=== PATIENT | male | born 1965 | race Caucasian/White ===

== ENCOUNTER 2018-05-08 17:27 | Emergency (ER) | payer SELFPAY ==
[2018-05-08 18:01] LABS: #Basophils 0.1 thou/uL (0.0-0.2); #Eosinphils 0.4 thou/uL (0.0-0.7); #Lymphocytes 3.4 thou/uL (1.20-3.40); #Monocytes 0.9 thou/uL (0.11-0.59); #Neutrophils 4.3 thou/uL (1.40-6.50); %Basophils 1.5 % (0.0-1.0); %Eosinophils 3.9 % (0.0-10.0); %Lymphocytes 36.9 % (21.0-51.0); %Neutrophils 47.6 % (42.0-75.0); Hemoglobin 12.8 g/dL (14.0-18.0); Mean Corpuscular Hemoglobin 29.6 pg (27.0-31.0); Mean Corpuscular Volume 92.4 fL (78.0-98.0); Mean Platelet Volume 7.7 fL (7.4-10.4); Platelet Count 381 thou/uL (130-400); RBC Distribution Width 12.2 % (11.5-14.5); Red Blood Cell (RBC) Count 4.32 mill/uL (4.70-6.10); White Blood Cell (WBC) Count 9.1 thou/uL (4.8-10.8)
[2018-05-08 18:24] LABS: ALT (SGPT) 20 U/L (8-55); AST (SGOT) 16 U/L (5-34); Alkaline Phosphatase 93 U/L (40-150); Anion Gap 12 mmol/L (10-20); BUN (Urea Nitrogen) 21 mg/dL (8.9-20.6); Bilirubin, Total 0.4 mg/dL (0.2-1.2); Calc. Creatinine Clearance 0 mL/min (70-130); Calcium 9.4 mg/dL (7.8-10.44); Carbon Dioxide 26 mmol/L (22-29); Chloride 106 mmol/L (98-107); Estimated GFR-MDRD 58; Globulin 3.1 g/dL (2.4-3.5); Glucose 124 mg/dL (70-105); Potassium 3.7 mmol/L (3.5-5.1); Protein, Total 7.1 g/dL (6.0-8.3); Sodium 140 mmol/L (136-145)
--- NOTE | 2018-05-08 20:51 | ULT ---
BILATERAL LOWER EXTREMITY VENOUS DOPPLER ULTRASOUND EVALUATION 05/08/18 HISTORY: 52-year-old who presents with a history of bilateral lower extremity swelling and redness for one wee k. Multiple longitudinal and transverse images of the right and left lower extremity venous systems are obtained using a multihertz linear array transducer. Real time, color flow, and spectral waveform dop pler analysis is used to evaluate the right and left lower extremity venous systems. Images demonstrate no evidence of acute or old clot seen in the right or left common femoral, superfi cial femoral, femora profunda, popliteal, posterior tibial vein, post trifurcation veins or greater s aphenous veins. IMPRESSION: No evidence of right or left lower extremity deep venous thrombosis. POS: [id number]
== END 2018-05-08 21:50 | disposition left against medical advice (07) ==
LOC: ERS 17:27
DX: N17.9 Acute kidney failure, unspecified (principal); F17.210 Nicotine dependence, cigarettes, uncomplicated
CPT/HCPCS: 36415; 80053; 85025; 93970

== ENCOUNTER 2022-10-03 06:15 | Emergency (ER) | payer SELFPAY ==
[2022-10-03] MEDS ORDERED: HYDROcodone/Acetaminophen 10/325 mg Tablet ONE (06:37)
[2022-10-03] MEDS ORDERED: Ketorolac Tromethamine 30 MG/ML VIAL ONE (06:37)
== END 2022-10-03 06:40 | disposition home or self-care (01) ==
LOC: ERS 06:15
DX: S39.012A Strain of muscle, fascia and tendon of lower back, initial encounter (principal); Y93.K9 Activity, other involving animal care
CPT/HCPCS: 96372; 99283; J1885

== ENCOUNTER 2022-11-27 18:51 | Emergency (ER) | payer SELFPAY | END 2022-11-27 20:45 | disposition home or self-care (01) | LOC: ERS 18:51 | DX: S63.501A Unspecified sprain of right wrist, initial encounter (principal); F17.210 Nicotine dependence, cigarettes, uncomplicated; W18.30XA Fall on same level, unspecified, initial encounter ==

== ENCOUNTER 2023-02-02 00:46 | Emergency (ER) | payer OTHER, SELFPAY ==
[2023-02-02] MEDS ORDERED: Acetaminophen 500 MG TAB ONE (01:32)
== END 2023-02-02 02:05 | disposition home or self-care (01) ==
LOC: ERS 00:46
DX: M25.531 Pain in right wrist (principal); F17.290 Nicotine dependence, other tobacco product, uncomplicated; W01.0XXA Fall on same level from slipping, tripping and stumbling without subsequent striking against object, initial encounter

== ENCOUNTER 2024-03-10 16:49 | Emergency (ER) | payer OTHER, SELFPAY ==
[2024-03-10] MEDS ORDERED: Lidocaine/Transparent Dressing 1 EACH KIT ONE (17:30)
== END 2024-03-10 18:37 | disposition home or self-care (01) ==
LOC: ERS 16:49
DX: S01.01XA Laceration without foreign body of scalp, initial encounter (principal); F17.290 Nicotine dependence, other tobacco product, uncomplicated; V89.2XXA Person injured in unspecified motor-vehicle accident, traffic, initial encounter
CPT/HCPCS: 12002; 93005